=== PATIENT | female | born 1980 | race Two or more races ===

== ENCOUNTER 2021-09-01 22:03 | Emergency (ER) | payer SELFPAY ==
[~2021-09-01] VITALS: Ht 174 cm; Wt 100.2 kg
[2021-09-01 23:05] VITALS: BP 142/87
== END 2021-09-01 23:05 | disposition home or self-care (01) ==
LOC: FSED 22:25
DX: S61.213A Laceration without foreign body of left middle finger without damage to nail, initial encounter (principal); W26.0XXA Contact with knife, initial encounter; Y92.090 Kitchen in other non-institutional residence as the place of occurrence of the external cause; F17.210 Nicotine dependence, cigarettes, uncomplicated
CPT/HCPCS: 99283